=== PATIENT | male | born 1950 | race Caucasian/White ===

== ENCOUNTER 2016-12-01 09:05 | Day surgery (SDC) | payer MEDICARE, OTHER ==
[2016-12-01] MEDS ORDERED: LACTATED RINGERS 1,000 ML IV ONE (09:49)
[2016-12-01] MEDS ORDERED: MIDAZOLAM 2 MG/2 ML VIAL IVP ONE (11:01)
[2016-12-01] MEDS ORDERED: fentaNYL 100 MCG/2 ML VIAL IVP ONE (11:01)
== END 2016-12-01 09:06 | disposition home or self-care (01) ==
PROC: 0DBK8ZX Excision of Ascending Colon, Via Natural or Artificial Opening Endoscopic, Diagnostic (ICD-10-PCS; principal; 2016-12-01 11:15)
DX: D12.2 Benign neoplasm of ascending colon (principal); K57.30 Diverticulosis of large intestine without perforation or abscess without bleeding; K64.8 Other hemorrhoids; G47.30 Sleep apnea, unspecified; Z83.3 Family history of diabetes mellitus; I10 Essential (primary) hypertension; Z95.5 Presence of coronary angioplasty implant and graft; I25.10 Atherosclerotic heart disease of native coronary artery without angina pectoris; E78.00 Pure hypercholesterolemia, unspecified; F32.9 Major depressive disorder, single episode, unspecified; F41.9 Anxiety disorder, unspecified; K21.9 Gastro-esophageal reflux disease without esophagitis; Z79.82 Long term (current) use of aspirin
CPT/HCPCS: 45385; J7120

== ENCOUNTER 2017-02-02 08:33 | Emergency (ER) | payer MEDICARE, OTHER ==
[2017-02-02] MEDS ORDERED: IPRATROPIUM/ALBUTEROL 3 ML NEB INH ONE (09:07)
[2017-02-02] MEDS: IPRATROPIUM/ALBUTEROL 3 ML NEB INH STA (09:18)
--- NOTE | 2017-02-02 09:32 | XRAY Preliminary Report ---
Exam: XR Chest 2 View PA/LAT IMPRESSION: Moderate to large right pleural effusion of indeterminate etiology. Diagnostic and therap eutic thoracentesis should be considered for further assessment. Increased interstitial markings left mid to lower lung. Query smoking history. No pulmonary nodules or masses. [facility] SITE ID: [id number]
--- NOTE | 2017-02-02 09:34 | XRAY Report ---
EXAM: CHEST RADIOGRAPHY, 2 VIEWS EXAM DATE: 02/02/2017 09:15 AM. CLINICAL HISTORY: 66-year-old male with shortness of breath over the past 34 days without associated illness or fever. History of stage IV bladder cancer. No history of lung surgery. COMPARISON: None. TECHNIQUE: Upright PA and lateral views. FINDINGS: Lungs/Pleura: Moderate to large right pleural effusion. Right upper lobe clear. Increased interstitial markings left mid to lower lung without segmental or lobar consolidation, effu zeeshan or pneumothorax. Mediastinum: Heart size normal with right heart secured by moderate to large right pleural effusion. No pulmonary vascular congestion or adenopathy. Other: Trachea is midline. Osseous structures are unremarkable for age. IMPRESSION: Moderate to large right pleural effusion of indeterminate etiology. Diagnostic and therap eutic thoracentesis should be considered for further assessment. Increased interstitial markings left mid to lower lung. Query smoking history. No pulmonary nodules or masses. [facility] Referring Provider Line: [phone] SITE ID: [id number]
[2017-02-02 11:03] LABS: BASOPHILS # (AUTO) 0.1 10^3/uL (0.0-0.1); BASOPHILS % (AUTO) 0.9 %; EOSINOPHILS # (AUTO) 0.2 10^3/uL (0.0-0.7); EOSINOPHILS % (AUTO) 1.5 %; HCT - HEMATOCRIT 43.7 % (42.0-52.0); HGB - HEMOGLOBIN 14.6 g/dL (14.0-18.0); LYMPHOCYTES # (AUTO) 1.7 10^3/uL (1.5-3.5); LYMPHOCYTES % (AUTO) 14.8 %; MEAN CORPUSCULAR HEMOGLOBIN 28.7 pg (27.0-31.0); MEAN CORPUSCULAR HGB CONC 33.4 g/dL (32.0-36.0); MEAN CORPUSCULAR VOLUME 85.8 fL (80.0-94.0); MEAN PLATELET VOLUME 8.8 fL (7.4-11.4); MONOCYTES % (AUTO) 8.6 %; NEUTROPHILS # (AUTO) 8.6 10^3/uL (1.5-6.6); NEUTROPHILS % (AUTO) 74.2 %; RED BLOOD COUNT 5.09 10^6/uL (4.70-6.10); RED CELL DISTRIBUTION WIDTH 14.6 % (12.0-15.0); UNCORRECTED WHITE BLOOD COUNT 11.6 x10^3/uL; WHITE BLOOD COUNT 11.6 x10^3/uL (4.8-10.8)
[2017-02-02 11:18] LABS: ALBUMIN/GLOBULIN RATIO 1.2 (1.0-2.2); BILIRUBIN,TOTAL 0.8 mg/dL (0.2-1.0); CALCIUM 8.9 mg/dL (8.5-10.3); CREATININE 1.7 mg/dL (0.6-1.2); POTASSIUM 4.3 mmol/L (3.5-5.0); TOTAL PROTEIN 6.7 g/dL (6.7-8.2)
--- NOTE | 2017-02-02 12:03 | ED Physician Documentation ---
PD HPI DYSPNEA - Stated complaint Stated Complaint: SOA - Chief complaint Chief Complaint: Resp - History obtained from History obtained from: Patient - History of Present Illness Timing - onset: How many weeks ago (2) Timing - onset during: Rest Timing - duration: Weeks (2) Timing - details: Gradual onset, Still present, Waxing and waning Inciting event(s): URI Improved by: Rest Worsened by: Exertion, Coughing Associated symptoms: Cough. No: Fever, Wheezing, Diaphoresis, Bilateral edema, Unilateral edema Similar symptoms before: Has not had sx before Recently seen: Not recently seen - Additional information Additional information: 66-year-old male former smoker has recently finished treatment for bladder cancer and has had a cancer free checkup last month. He has developed increasing dyspnea over the past 2 weeks and over the past 4-5 days this is come much more evident. He is coming to the emergency department today short of breath.His cough produces some white phlegm. Review of Systems Constitutional: denies: Fever Eyes: denies: Decreased vision Ears: denies: Loss of hearing, Ear pain Nose: reports: Congestion. denies: Rhinorrhea / runny nose Throat: denies: Sore throat Cardiac: denies: Chest pain / pressure, Palpitations Respiratory: reports: Dyspnea, Cough GI: denies: Abdominal Pain, Nausea, Vomiting : denies: Dysuria, Frequency PD PAST MEDICAL HISTORY - Past Medical History Cardiovascular: Hypertension, High cholesterol, Coronary artery disease Respiratory: Sleep apnea, CPAP use Endocrine/Autoimmune: None GI: GERD, Other : Other HEENT: Chronic hearing loss Psych: Post traumatic stress disorder Musculoskeletal: Osteoarthritis, Chronic back pain - Past Surgical History Past Surgical History: Yes General: Colonoscopy Cardiovascular: Coronary stent HEENT: Other - Present Medications Home Medications: Ambulatory Orders Medication Instructions Recorded Confirmed Ascorbic Acid [Vitamin C] 1 tab PO DAILY 01/08/15 02/02/17 Aspirin [Aspir 81] 81 mg PO DAILY 01/08/15 02/02/17 Atorvastatin [Lipitor] 80 mg ORAL DAILY 01/08/15 02/02/17 Carvedilol 3.125 mg PO BID 01/08/15 12/01/16 Esomeprazole Magnesium [Nexium] 40 mg PO DAILY 01/08/15 02/02/17 Lisinopril 40 mg PO DAILY 01/08/15 02/02/17 Multivitamin [Multivitamins] 1 each PO DAILY 01/08/15 02/02/17 PARoxetine [Paxil] 30 mg PO DAILY 01/08/15 02/02/17 Prazosin [Minipress] 2 mg PO DAILY 01/08/15 02/02/17 Vitamin E 1 tab PO DAILY 01/08/15 02/02/17 - Allergies Allergies/Adverse Reactions: Allergies Allergy/AdvReac Type Severity Reaction Status Date / Time No Known Drug Allergies Allergy Verified 01/08/15 08:15 - Social History Does the pt smoke?: Yes Smoking Status: Former smoker Does the pt drink ETOH?: No Does the pt have substance abuse?: No - Immunizations Immunizations are current?: No Immunizations: TDAP >10years/unknown PD ED PE NORMAL - Vitals Vital signs reviewed: Yes (Hypertension and tachycardic) - General General: Well developed/nourished, Other (Mild tachypnea at rest) - HEENT HEENT: Atraumatic, PERRL, EOMI, Ears normal, Pharynx benign - Neck Neck: Supple, no meningeal sign - Cardiac Cardiac: RRR, No murmur - Respiratory Respiratory: No respiratory distress, Other (Diminished breath sounds in the right base) - Back Back: No CVA TTP, No spinal TTP - Derm Derm: Normal color, Warm and dry, No rash - Extremities Extremities: No deformity - Neuro Neuro: Alert and oriented X 3, No motor deficit, No sensory deficit, Normal speech - Psych Psych: Normal mood, Normal affect Results - Vitals Vitals: Oxygen O2 Source Room air Oxygen Flow Rate 2 - Labs Labs: Microbiology 02/02/17 16:30 Body Fluid Culture - Preliminary Other - Pleura, R Lung 02/02/17 10:53 Blood Culture - Preliminary Blood - Right Arm NO GROWTH AFTER 2 DAYS Laboratory Tests 02/02/17 02/02/17 02/02/17 09:25 10:53 10:53 WBC 11.6 H RBC 5.09 Hgb 14.6 Hct 43.7 MCV 85.8 MCH 28.7 MCHC 33.4 RDW 14.6 Plt Count 173 MPV 8.8 Neut # 8.6 H Lymph # 1.7 [place] # 1.0 Eos # 0.2 Baso # 0.1 Absolute Nucleated RBC 0.00 Nucleated RBCs 0.0 PT 12.0 INR 1.1 APTT 25.8 Sodium 140 Potassium 4.3 Chloride 104 Carbon Dioxide 28 Anion Gap 8.0 BUN 20 Creatinine 1.7 H Estimated GFR (MDRD) 40 L Glucose 105 H Calcium 8.9 Total Bilirubin 0.8 AST 14 ALT 10 Alkaline Phosphatase 83 Lactate Dehydrogenase Troponin I Total Protein 6.7 Albumin 3.6 Globulin 3.1 Albumin/Globulin Ratio 1.2 Lipase 20 L Fluid Source Fluid Color Fluid Clarity Fluid WBC Fluid RBC Fluid Neutrophils % Fluid Lymphocytes % Fluid Monocytes % Fluid Macrophages % Fld Mesothelial Cell % Ref Lab Test Result 02/02/17 02/02/17 02/02/17 10:53 10:53 15:48 WBC RBC Hgb Hct MCV MCH MCHC RDW Plt Count MPV Neut # Lymph # [place] # Eos # Baso # Absolute Nucleated RBC Nucleated RBCs PT INR APTT Sodium Potassium Chloride Carbon Dioxide Anion Gap BUN Creatinine Estimated GFR (MDRD) Glucose Calcium Total Bilirubin AST ALT Alkaline Phosphatase Lactate Dehydrogenase 168 Troponin I < 0.04 Total Protein Albumin Globulin Albumin/Globulin Ratio Lipase Fluid Source THOROCENTESIS Fluid Color YELLOW Fluid Clarity CLOUDY Fluid WBC 5085 Fluid RBC 3480 Fluid Neutrophils % 4 Fluid Lymphocytes % 26 Fluid Monocytes % 4 Fluid Macrophages % 2 Fld Mesothelial Cell % 64 Ref Lab Test Result 02/02/17 02/02/17 15:48 15:48 WBC RBC Hgb Hct MCV MCH MCHC RDW Plt Count MPV Neut # Lymph # [place] # Eos # Baso # Absolute Nucleated RBC Nucleated RBCs PT INR APTT Sodium Potassium Chloride Carbon Dioxide Anion Gap BUN Creatinine Estimated GFR (MDRD) Glucose Calcium Total Bilirubin AST ALT Alkaline Phosphatase Lactate Dehydrogenase Troponin I Total Protein Albumin Globulin Albumin/Globulin Ratio Lipase Fluid Source Fluid Color Fluid Clarity Fluid WBC Fluid RBC Fluid Neutrophils % Fluid Lymphocytes % Fluid Monocytes % Fluid Macrophages % Fld Mesothelial Cell % Ref Lab Test Result REPORT REPORT - Rads (name of study) 2 view chest Radiology: Prelim report reviewed (Impression: Moderate to large right pleural effusion of indeterminate etiology. Diagnostic and therapeutic thoracentesis should be considered for further assessment. Increased interstitial markings left mid to lower lung. Query smoking history. No pulmonary nodules or masses. ), EMP read indepedently, See rad report post procedure Radiology: Prelim report reviewed (Impression: Small right pleural effusion, decreased in size compared to the prior examination consistent with thoracentesis. No pneumothorax.), EMP read indepedently, See rad report PD MEDICAL DECISION MAKING - ED course Complexity details: reviewed results, re-evaluated patient, considered differential, d/w patient, d/w family ED course: 66 y/o male with shortness of breath has a pleural effusion on the right side and this is tapped in DI and fluid is sent for cytology, cell count, gram stain , C&S, LDH and protein. The cell count does not implicate infection. The LDH and protein are a send out. He is markedly improved and he is diagnosed with "pleural effusion" and he will need follow up for results and progress. He has an appointment with his oncologist this week. Departure - Departure Disposition: 01 Home, Self Care Clinical Impression: Pleural effusion Condition: Stable Instructions: ED Effusion Pleural Follow-Up: Your, oncologist [Other] Discharge Date/Time: 02/02/17 19:23
[2017-02-02 12:18] LABS: INR 1.1 (0.8-1.2)
[2017-02-02 12:25] LABS: PARTIAL THROMBOPLASTIN TIME 25.8 secs (24.9-33.3)
[2017-02-02] MEDS: BUFFERED LIDOCAINE 10 ML SYRINGE SUBQ STA (16:51)
[2017-02-02 17:19] LABS: CC,BF RBC 3480 /mm^3
[2017-02-02 17:20] LABS: BF CLARITY CLOUDY; BF COLOR YELLOW
[2017-02-02 18:02] LABS: LYMPHOCYTES %,BODY FLUID 26; NEUTROPHILS %, BF 4 %
[2017-02-02 18:03] LABS: MACROPHAGES %,BODY FLUID 2 %; MESOTHELIAL %, BF 64 %; MONOCYTES %,BODY FLUID 4 %
--- NOTE | 2017-02-02 18:57 | XRAY Preliminary Report ---
Exam: XR Chest 2 View PA/LAT IMPRESSION: Small right pleural effusion, decreased in size compared to the prior examination consist ent with thoracentesis. No pneumothorax. [facility] SITE ID: [id number]
--- NOTE | 2017-02-02 19:00 | XRAY Report ---
EXAM: CHEST RADIOGRAPHY EXAM DATE: 02/02/2017 05:47 PM. CLINICAL HISTORY: Post thoracentesis. COMPARISON: Chest x-ray 02/02/2017. TECHNIQUE: 2 views. FINDINGS: Lungs/Pleura: Small right pleural effusion with mild right basilar air space disease. Mild reticular interstitial process involving the mid to lower lungs. Mediastinum: Heart and mediastinal contours are unremarkable. Other: None. IMPRESSION: Small right pleural effusion, decreased in size compared to the prior examination consist ent with thoracentesis. No pneumothorax. [facility] Referring Provider Line: [phone] SITE ID: [id number]
[2017-02-02 19:23] VITALS: BP 117/80
--- NOTE | 2017-02-04 07:29 | Ultrasound Report ---
ULTRASOUND-GUIDED RIGHT THORACENTESIS: 02/02/2017 CLINICAL INDICATION: Right pleural effusion. FINDINGS: Following obtaining informed consent, a suitable site on the patient's right posterior tho rax was selected with ultrasound. The skin was prepped and draped in the usual sterile fashion. The s kin and soft tissues were anesthetized with lidocaine. A [id number] catheter was inserted into th e right pleural space, and approximately 2100 mL of fluid was removed without difficulty. The patient tolerated the procedure well. No immediate complication. IMPRESSION: SUCCESSFUL ULTRASOUND-GUIDED THORACENTESIS, YIELDING APPROXIMATELY 2100 mL OF FLUID. FLU ID SUBMITTED TO THE LAB FOR FURTHER EVALUATION ORDERED BY THE EMERGENCY DEPARTMENT PHYSICIAN. JOB #: [id number] EXT JOB #:[id number]
[2017-02-04 17:41] LABS: TEST RESULT REPORT (())
== END 2017-02-02 19:23 | disposition home or self-care (01) ==
LOC: ED 08:33
DX: J90 Pleural effusion, not elsewhere classified (principal); I10 Essential (primary) hypertension; Z85.51 Personal history of malignant neoplasm of bladder; E78.00 Pure hypercholesterolemia, unspecified; I25.10 Atherosclerotic heart disease of native coronary artery without angina pectoris; G47.30 Sleep apnea, unspecified; K21.9 Gastro-esophageal reflux disease without esophagitis; M19.90 Unspecified osteoarthritis, unspecified site; Z79.82 Long term (current) use of aspirin; Z87.891 Personal history of nicotine dependence
CPT/HCPCS: 32555; 36415; 71020; 80053; 81599; 83615; 83690; 84157; 84484; 85025; 85610; 85730; 87040; 87070; 87205; 88108; 88305; 88341; 88342; 88344; 89051; 94640; 99284